=== PATIENT | female | born 1940 | race Caucasian/White ===

== ENCOUNTER 2018-10-06 14:22 | Emergency (ER) | payer MEDICARE, MEDICAID ==
[~2018-10-06] VITALS: Ht 160 cm; Wt 74.0 kg
[2018-10-06 15:06] LABS: BASOPHILS % (AUTO) 0.5 % (0-1); EOSINOPHILS % (AUTO) 0.6 % (0-6); HEMATOCRIT 43.2 % (35.0-45.0); HEMOGLOBIN 14.3 g/dl (12.0-16.0); LYMPHOCYTES # (AUTO) 1.8 X10'3 (1.1-4.8); LYMPHOCYTES % (AUTO) 24.5 % (21-51); MEAN CORPUSCULAR HEMOGLOBIN 29.4 PG (27.0-31.0); MEAN CORPUSCULAR HGB CONC 33.1 g/dL (33.0-36.5); MEAN CORPUSCULAR VOLUME 88.8 FL (78-98); MEAN PLATELET VOLUME 6.2 FL (7.4-10.4); MONOCYTES # (AUTO) 0.7 X10'3 (0-0.9); MONOCYTES % (AUTO) 9.1 % (2-12); NEUTROPHILS # (AUTO) 4.8 X10'3 (1.8-7.7); NEUTROPHILS % (AUTO) 65.3 % (42-75); PLATELET COUNT 219 X10'3 (140-440); RED BLOOD COUNT 4.87 X10'6 (4.20-5.60); RED CELL DISTRIBUTION WIDTH 13.9 % (11.5-14.5); WHITE BLOOD COUNT 7.4 X10'3 (4.5-11.0)
[2018-10-06 15:21] LABS: ALANINE AMINOTRANSFERASE 26 U/L (12-78); ALKALINE PHOSPHATASE 96 IU/L (46-116); ANION GAP 9 (8-16); ASPARTATE AMINO TRANSFERASE 20 U/L (10-37); BILIRUBIN,TOTAL 0.4 MG/DL (0.1-1.0); BLOOD UREA NITROGEN 15 MG/DL (7-18); BUN/CREATININE RATIO 16.5 (6.6-38.0); CALCIUM 9.3 MG/DL (8.5-10.1); CHLORIDE 101 MMOL/L (99-107); CREATININE 0.91 MG/DL (0.40-0.90); GLUCOSE 140 MG/DL (70-104); POTASSIUM 4.1 MMOL/L (3.5-5.1); SODIUM 137 MMOL/L (135-145); TOTAL CARBON DIOXIDE 27.2 MMOL/L (24-32); TOTAL PROTEIN 7.9 G/DL (6.4-8.2); eGFR 60 ML/MIN
--- NOTE | 2018-10-06 15:34 | NUR ---
dr. arana at bedside.
[2018-10-06 15:45] LABS: PARTIAL THROMBOPLASTIN TIME 26 SECONDS (22-32); PROTHROMBIN TIME 9.8 SECONDS (9.0-12.0)
[2018-10-06] MEDS ORDERED: APIX5TAB3 PO (16:02)
[2018-10-06 16:28] VITALS: BP 149/78
== END 2018-10-06 16:29 | disposition home or self-care (01) ==
LOC: ER 14:22
DX: I48.91 Unspecified atrial fibrillation (principal); I44.7 Left bundle-branch block, unspecified
CPT/HCPCS: 36415; 71045; 80053; 84484; 85025; 85610; 85730; 93005; 99284

== ENCOUNTER 2020-04-27 11:36 | Day surgery (SDC) | payer MEDICARE, MEDICAID ==
[~2020-04-27] VITALS: Ht 160 cm; Wt 65.9 kg
[~2020-04-27 11:36] MED LIST: ASPI-611 PO; HYDR-3965 PO; NAPR-996 PO; PANT40TA54 PO
[2020-04-27 11:50] VITALS: BP 142/77
[2020-04-27] MEDS ORDERED: MIDAZolam 5mg/5ml vial ONE (12:10)
[2020-04-27] MEDS ORDERED: fentaNYL/PF 50MCG/1 ML 2ML syringe ONE (12:10)
[2020-04-27] MEDS ORDERED: LIDOcaine Viscous 15ml cup ONE (12:11)
[2020-04-27] MEDS ORDERED: iohexol 300 MG/1 ML 50ml polymer ONE (12:11)
[2020-04-27] MEDS ORDERED: glucagon, human recombinant 1mg kit ONE (12:11)
[2020-04-27 13:49] VITALS: BP 124/80
[2020-04-27 13:58] VITALS: BP 148/61
[2020-04-27] MEDS ORDERED: levoFLOXACIN-Levaquin 500mg/D5 100 ML IV ONE (14:03)
[2020-04-27 14:08] VITALS: BP 143/82
[2020-04-27 14:28] VITALS: BP 153/82
[2020-04-27 14:38] VITALS: BP 133/71
== END 2020-04-27 15:00 | disposition home or self-care (01) ==
LOC: GI LAB 11:36
PROVIDERS: ATTEND Internal Medicine Gastroenterology
DX: Z46.59 Encounter for fitting and adjustment of other gastrointestinal appliance and device (principal); K80.50 Calculus of bile duct without cholangitis or cholecystitis without obstruction; I48.91 Unspecified atrial fibrillation; Z79.899 Other long term (current) drug therapy
CPT/HCPCS: 43264; 43275; 74330; 99153; C1769; C1773; G0500; J1610; J1956; J2250; J3010; J7040; Q9967; 43262; 99152; A4620

== ENCOUNTER 2020-08-19 10:48 | Emergency (ER) | payer MEDICARE, MEDICAID ==
[~2020-08-19] VITALS: Ht 160 cm; Wt 66.8 kg
[~2020-08-19 10:48] MED LIST changes: -HYDR-3965 PO; -NAPR-996 PO; -PANT40TA54 PO
[2020-08-19 11:06] VITALS: BP 156/64
[2020-08-19] MEDS ORDERED: LIDOcaine 1% W/epiNEPHrine 1:200,000 10ml vial IJ ONE (13:10)
[2020-08-19] MEDS ORDERED: DOXYCYCLINE 100MG CAPSULE PO STA (13:37)
[2020-08-19] MEDS ORDERED: DOXY100T56 PO (14:40)
== END 2020-08-19 14:46 | disposition home or self-care (01) ==
LOC: ER 10:49
DX: S00.05XA Superficial foreign body of scalp, initial encounter (principal); S00.01XA Abrasion of scalp, initial encounter; I48.91 Unspecified atrial fibrillation; Z79.899 Other long term (current) drug therapy; W57.XXXA Bitten or stung by nonvenomous insect and other nonvenomous arthropods, initial encounter; Y93.89 Activity, other specified; Y92.89 Other specified places as the place of occurrence of the external cause; Y99.8 Other external cause status
CPT/HCPCS: 10120; 99284; 99285

== ENCOUNTER 2022-06-07 10:07 | Emergency (ER) | payer MEDICARE, MEDICAID ==
[~2022-06-07] VITALS: Ht 160 cm; Wt 70.5 kg
[2022-06-07 10:34] VITALS: BP 160/69
[2022-06-07] MEDS ORDERED: CYCL-1 PO (11:50)
[2022-06-07] MEDS ORDERED: cyclobenzaprine 10mg tablet PO ONE (11:55)
[2022-06-07] MEDS ORDERED: HYDROcodone/acetaminophen 5mg/325mg tablet PO ONE (11:55)
== END 2022-06-07 12:16 | disposition home or self-care (01) ==
LOC: ER 10:07
DX: S39.012A Strain of muscle, fascia and tendon of lower back, initial encounter (principal); R25.2 Cramp and spasm; I48.91 Unspecified atrial fibrillation; Z79.82 Long term (current) use of aspirin; Z79.899 Other long term (current) drug therapy; X58.XXXA Exposure to other specified factors, initial encounter; Y93.89 Activity, other specified; Y92.89 Other specified places as the place of occurrence of the external cause; Y99.8 Other external cause status
CPT/HCPCS: 72100; 99283

== ENCOUNTER 2022-07-14 11:57 | Emergency (ER) | payer MEDICARE, MEDICAID ==
[~2022-07-14] VITALS: Ht 160 cm; Wt 70.5 kg
[~2022-07-14 11:57] MED LIST changes: +CYCL-1 PO
[2022-07-14 12:00] VITALS: BP 92/75
--- NOTE | 2022-07-14 13:18 | NUR ---
Transport home: Milana (friend) [phone]
[2022-07-14] MEDS ORDERED: acetaminophen 325mg tablet PO ONE (14:45)
[2022-07-14] MEDS ORDERED: ibuprofen tablet 400 MG TABLET PO ONE (14:45)
== END 2022-07-14 15:01 | disposition home or self-care (01) ==
LOC: ER 11:58
DX: S30.0XXA Contusion of lower back and pelvis, initial encounter (principal); S40.021A Contusion of right upper arm, initial encounter; I51.9 Heart disease, unspecified; Z79.82 Long term (current) use of aspirin; Z79.899 Other long term (current) drug therapy; W18.39XA Other fall on same level, initial encounter; Y93.89 Activity, other specified; Y92.89 Other specified places as the place of occurrence of the external cause; Y99.8 Other external cause status
CPT/HCPCS: 73502; 99284

== ENCOUNTER 2023-09-05 10:10 | Outpatient (CLI) | payer MEDICARE, MEDICAID ==
[~2023-09-05 10:10] MED LIST changes: +AMI200T PO; +APIX2.5T; -ASPI-611 PO; +ASPI81TA53 PO; +ATOR10TA PO; -CYCL-1 PO; +DOCU100C40 PO; +HYDR-3964 PO; +HYDR-3965 PO; +LOP25T PO; +MELO-100 PO; +OXYB5TAB21; +PREG50CA65 PO; +[UNRECOGNIZED DRUG - CODE]
== END 2023-09-05 23:59 | disposition home or self-care (01) ==
LOC: RAD 10:10
PROVIDERS: ATTEND Thoracic Surgery (Cardiothoracic Vascular Surgery)
DX: J90 Pleural effusion, not elsewhere classified (principal)
CPT/HCPCS: 71046

== ENCOUNTER 2023-09-22 18:10 | Emergency (ER) | payer MEDICARE, MEDICAID ==
[~2023-09-22] VITALS: Ht 160 cm; Wt 75.0 kg
[~2023-09-22 18:10] MED LIST changes: +ASPI81TA52 PO; -ASPI81TA53 PO; -ATOR10TA PO; +ATOR10TA70 PO; +FURO-150 PO; -HYDR-3964 PO; -LOP25T PO; -MELO-100 PO; +METO25TA6 PO; -OXYB5TAB21
[2023-09-22 18:16] VITALS: BP 134/49; PULSE 73; RESP 16; TEMP 97.8; O2SAT 99
[2023-09-22 19:01] LABS: BASOPHILS # (AUTO) 0.1 X10'3 (0-0.2); BASOPHILS % (AUTO) 0.7 % (0-1); EOSINOPHILS # (AUTO) 0.2 X10'3 (0-0.9); EOSINOPHILS % (AUTO) 2.4 % (0-6); HEMOGLOBIN 11.8 g/dl (12.0-16.0); LYMPHOCYTES # (AUTO) 1.6 X10'3 (1.1-4.8); LYMPHOCYTES % (AUTO) 21.2 % (21-51); MEAN CORPUSCULAR HEMOGLOBIN 30.4 PG (27.0-31.0); MEAN CORPUSCULAR HGB CONC 32.8 g/dL (33.0-36.5); MEAN CORPUSCULAR VOLUME 92.8 FL (78-98); MEAN PLATELET VOLUME 6.1 FL (7.4-10.4); MONOCYTES # (AUTO) 0.8 X10'3 (0-0.9); MONOCYTES % (AUTO) 11.2 % (2-12); NEUTROPHILS # (AUTO) 4.9 X10'3 (1.8-7.7); NEUTROPHILS % (AUTO) 64.5 % (42-75); PLATELET COUNT 255 X10'3 (140-440); RED BLOOD COUNT 3.88 X10'6 (4.20-5.60); RED CELL DISTRIBUTION WIDTH 15.9 % (11.5-14.5); WHITE BLOOD COUNT 7.5 X10'3 (4.5-11.0)
[2023-09-22 19:24] LABS: ALBUMIN 3.6 G/DL (3.4-5.0); ANION GAP 8 (8-16); BLOOD UREA NITROGEN 13 MG/DL (7-18); BUN/CREATININE RATIO 15.3 (10.0-20.0); CALCIUM 8.7 MG/DL (8.5-10.1); CHLORIDE 99 MMOL/L (99-107); CREATININE 0.85 MG/DL (0.40-0.90); GLUCOSE 138 MG/DL (70-104); POTASSIUM 3.7 MMOL/L (3.5-5.1); PRO BRAIN NATRIURETIC PEPTIDE 2791 PG/ML (0-450); SODIUM 136 MMOL/L (135-145); TOTAL CARBON DIOXIDE 29.1 MMOL/L (24-32); eCRCL 41 ML/MIN; eGFR 64 ML/MIN
== END 2023-09-22 21:13 | disposition home or self-care (01) ==
LOC: ER 18:10
DX: L76.32 Postprocedural hematoma of skin and subcutaneous tissue following other procedure (principal); Z79.899 Other long term (current) drug therapy
CPT/HCPCS: 36415; 71045; 80048; 83880; 84484; 85025; 93005; 93971; 99285

== ENCOUNTER 2024-06-23 08:51 | Emergency (ER) | payer MEDICARE, MEDICAID ==
[~2024-06-23] VITALS: Ht 160 cm; Wt 63.2 kg
[~2024-06-23 08:51] MED LIST changes: +LIDO700A47 TOP; +SENN-202 PO; +TIZA-189 PO
[2024-06-23 09:03] VITALS: BP 122/40; PULSE 56; O2SAT 99
[2024-06-23 10:15] VITALS: RESP 16
[2024-06-23] MEDS: HYDROcodone/acetaminophen 10/325mg tab PO ONE (10:15)
[2024-06-23] MEDS ORDERED: HYDR-3973 PO (10:53)
[2024-06-23] MEDS: dexamethasone sod phosphate 10mg/ml inj IM STA (11:13)
[2024-06-23 11:22] VITALS: TEMP 98.9
== END 2024-06-23 11:24 | disposition home or self-care (01) ==
LOC: ER 08:52
DX: G89.29 Other chronic pain (principal); M25.552 Pain in left hip; I48.91 Unspecified atrial fibrillation; I25.10 Atherosclerotic heart disease of native coronary artery without angina pectoris; Z95.1 Presence of aortocoronary bypass graft
CPT/HCPCS: 73502; 96372; 99284; J1100

== ENCOUNTER 2024-12-11 10:56 | Emergency (ER) | payer MEDICARE, MEDICAID ==
[~2024-12-11] VITALS: Ht 160 cm; Wt 64.0 kg
[2024-12-11 11:02] VITALS: BP 139/61; PULSE 95; TEMP 98; O2SAT 99
--- NOTE | 2024-12-11 12:29 | Physician Documentation ---
HPI ~ General Chief Complaint: Medication Request Stated Complaint: BACK PAIN Time Seen by MD: 11:54 Primary Medical Doctor: FARIDEH BONILLA [facility] History of Present Illness HPI Comments Patient is seen today With complaints of back pain and pain of her left hand. Patient states she has acute on chronic pain and has sustained multiple ground level falls and states she is normally ambulatory. Patient states she recently broke her left hand a little bit ago. Patient denies any current chest pain or shortness of breath or abdominal pain or nausea, vomiting, diarrhea. Medication Reconciliation Allergies: Coded Allergies: No Known Allergies (Unverified , 06/23/24) Scheduled Amiodarone Hcl (Cordarone), 200 MG PO BID, (Reported) Aspirin (Aspirin EC), 1 TAB PO DAILY, (Reported) Atorvastatin Calcium (Atorvastatin Calcium), 1 TAB PO DAILY, (Reported) Docusate Sodium (Docusate Sodium), 1 CAP PO DAILY, (Reported) Furosemide* (Lasix*), 1 TAB PO DAILY, (Reported) Lidocaine (Lidocaine), 1 PATCH TOP DAILY Metoprolol Tartrate (Metoprolol Tartrate), 1 TAB PO BID, (Reported) Pregabalin (Pregabalin), 1 CAP PO TID, (Reported) Sennosides/Docusate Sodium (Colace 2-in-1 Tablet), 1 TAB PO HS Tizanidine Hcl (Zanaflex), 1 TAB PO Q12H Scheduled PRN Hydrocodone Bit/Acetaminophen 5/325 MG ([place] 5/325 MG), 1 TAB PO Q6H PRN for pain, (Reported) Miscellaneous Medications Apixaban (Eliquis), (Reported) Methocarbamol (Methocarbamol), (Reported) Past Medical History Past Medical History: Atrial Fibrillation, Pancreatitis Past Surgical History: noncontributory Patient History: FH: colon cancer FATHER Smoking Status: Never smoker Alcohol Use: None Drug Use: none Lives with: Family Lives In: Home Occupation: retired Review of Systems Constitutional: Denies: chills, fever, weakness Eyes: Denies: pain, blurred vision ENT: Denies: ear pain, nose pain, throat pain, mouth pain Respiratory: Denies: cough, shortness of breath Cardiovascular: Denies: chest pain, palpitations Gastrointestinal: Denies: abdominal pain, nausea, vomiting Genitourinary: Denies: burning, dysuria Female Genitalia: Denies: vaginal discharge, pelvic pain Neurological: Denies: headache, dizziness Musculoskeletal: Denies: pain, swelling Integumentary: Denies: rash, lesions Allergic/Immunologic: Denies: hives, itching Hematologic/Lymphatic: Denies: no symptoms reported Psychiatric: Denies: depression, anxiety Physical Exam Physical Exam Vital Signs: Temperature: 98.0, Source: Temporal, Heart Rate: 95, Respiratory Rate: 16, BP: 139/61, Pulse Oximetry: 99, Weight: 64.000 Oxygen Flow Rate: 0 Physical Exam General: Awake and Alert, no acute distress. HEENT: Conjunctiva pink, Sclera clear, Mucus Membranes moist. Neck: Supple without masses and tenderness. Resp: Unlabored. Lungs clear to auscultation bilaterally. Heart: Regular Rate and rhythm, normal S1 and S2 without murmur, rub or gallop. Musculoskeletal: Patient on exam does have decreased range of motion of her hips and knees due to pain as well as a brace in place of her left hand. I do not appreciate any significant swelling of her left hand. Patient is neurovascularly intact distally. Motor function intact distally. Extremities: No cyanosis,clubbing or edema. Skin: Warm and Dry. Progress Results/Orders Results/Orders Vital Signs 12/11/24 11:02 Temp 98.0 Pulse 95 Resp 16 B/P (MAP) 139/61 Pulse Ox 99 O2 Flow Rate 0 Medical Decision Making Findings Patient is seen today With complaints of back pain and pain of her left hand. Patient states she has acute on chronic pain and has sustained multiple ground level falls and states she is normally ambulatory. Patient states she recently broke her left hand a little bit ago. Patient denies any current chest pain or shortness of breath or abdominal pain or nausea, vomiting, diarrhea. Patient was given a [place] 5/325 mg in the ED today by mouth. Prescription of [place] 5/325 mg sent to patient pharmacy to be used as directed. Patient will follow up with primary care as soon as possible for further eval and treatment of her acute on chronic pain. Patient will return to ED with any worsening, concerning or changing symptoms. Departure Disposition: HOME / SELF CARE / HOMELESS Impression: Primary Impression: Pain Additional Impression: Low back pain Qualified Codes: M54.50 - Low back pain, unspecified; G89.29 - Other chronic pain Condition: Improved Discharge Instructions: Medicine Refill at the Emergency Department Additional Instructions: Patient was given a [place] 5/325 mg in the ED today by mouth. Prescription of [place] 5/325 mg sent to patient pharmacy to be used as directed. Patient will follow up with primary care as soon as possible for further eval and treatment of her acute on chronic pain. Patient will return to ED with any worsening, concerning or changing symptoms. Referrals: NO PRIMARY CARE PROVIDER (PCP) Prescriptions Hydrocodone Bit/Acetaminophen 5/325 MG ([place] 5/325 MG) 5 Mg/325 Mg Tablet 1 TAB PO Q8H PRN for pain, #30 TAB Prov: XU BUSTILLOS 12/11/24 Signature Scribe Signature: No scribe Attestation: No scribe XU BUSTILLOS December 11, 2024 12:29
[2024-12-11] MEDS ORDERED: HYDR-3965 PO (12:32)
[2024-12-11 12:49] VITALS: RESP 18
[2024-12-11] MEDS: HYDROcodone/acetaminophen 5mg/325mg tablet PO STA (12:49)
== END 2024-12-11 12:55 | disposition home or self-care (01) ==
LOC: ER 10:57
DX: M54.50 Low back pain, unspecified (principal); M79.642 Pain in left hand
CPT/HCPCS: 99284

== ENCOUNTER 2024-12-24 11:09 | Emergency (ER) | payer MEDICARE, MEDICAID ==
[~2024-12-24] VITALS: Ht 160 cm; Wt 65.0 kg
[2024-12-24 11:16] VITALS: TEMP 97.6
--- NOTE | 2024-12-24 13:31 | Physician Documentation ---
History of Present Illness ~ Chief Complaint: Hip pain Stated Complaint: WEAKNESS Time Seen by MD: 12:27 Primary Medical Doctor: FARIDEH BOUDREAUX Mode of Arrival: EMS HPI 84-year-old female history of CAD status post CABG, AFib on Eliquis chronic back pain. She has had pain for several years. Worsened over the last several months. She was seen recently in the ED and prescribed Percocet which she stopped taking because she became constipated Medication Reconciliation Allergies: Coded Allergies: No Known Allergies (Unverified , 12/24/24) Scheduled Furosemide* (Lasix*), 1 TAB PO DAILY, (Reported) Metoprolol Tartrate (Metoprolol Tartrate), 1 TAB PO BID, (Reported) Scheduled PRN Hydrocodone Bit/Acetaminophen 5/325 MG ([place] 5/325 MG), 1 TAB PO Q6H PRN for pain, (Reported) Miscellaneous Medications Apixaban (Eliquis), (Reported) Discontinued Medications Amiodarone Hcl (Cordarone), 200 MG PO BID, (Reported) Discontinued Reason: patient no longer taking Aspirin (Aspirin EC), 1 TAB PO DAILY, (Reported) Discontinued Reason: patient no longer taking Atorvastatin Calcium (Atorvastatin Calcium), 1 TAB PO DAILY, (Reported) Discontinued Reason: patient no longer taking Docusate Sodium (Docusate Sodium), 1 CAP PO DAILY, (Reported) Discontinued Reason: patient no longer taking Hydrocodone Bit/Acetaminophen 5/325 MG ([place] 5/325 MG), 1 TAB PO Q8H PRN for pain Discontinued Reason: patient no longer taking Lidocaine (Lidocaine), 1 PATCH TOP DAILY Discontinued Reason: patient no longer taking Methocarbamol (Methocarbamol), (Reported) Discontinued Reason: patient no longer taking Pregabalin (Pregabalin), 1 CAP PO TID, (Reported) Discontinued Reason: patient no longer taking Sennosides/Docusate Sodium (Colace 2-in-1 Tablet), 1 TAB PO HS Discontinued Reason: patient no longer taking Tizanidine Hcl (Zanaflex), 1 TAB PO Q12H Discontinued Reason: patient no longer taking Past Medical History Past Medical History: Atrial Fibrillation, Pancreatitis Past Surgical History: noncontributory Patient History: FH: colon cancer FATHER Alcohol Use: None Drug Use: none Lives with: Family Lives In: Home Occupation: retired Review of Systems All Other Systems at this time: Reviewed and Negative Constitutional: Denies: fever Respiratory: Denies: shortness of breath Cardiovascular: Denies: chest pain Gastrointestinal: Denies: abdominal pain Physical Exam Vital Signs: RN Vital Signs have been reviewed: Yes, Temperature: 97.6, Source: Temporal, Heart Rate: 72, Respiratory Rate: 18, BP: 146/54, Pulse Oximetry: 98, Weight: 65.000 Physical Exam Well-appearing no distress resting comfortably in bed No JVD Moist mucous membranes Pulmonary clear to auscultation bilaterally Cardiac no murmur Abdomen is soft nontender Lower extremity 1+ pitting bilateral edema, spastic lower extremity feet held and dorsiflexion bilaterally Awake alert oriented Progress Progress Note Discussed case with Dr. Harris who will evaluate the patient 10:30 a.m. discussed case with Dr. Harris who reviewed the imaging and felt this is chronic. He recommends admission to the hospitalist service for PT, pain management. He may consider transfer to [facility] on Monday for operative intervention 11:55 a.m. discussed case with Dr. Thurman who was concerned that with no on-call neurosurgical specialist if patient were to deteriorate he would not be able to intervene. He has declining admission and requesting that we transfer patient to a facility with on-call neurosurgical evaluation. We will begin bed search Results/Orders Reviewed/noted all lab results: Yes Results/Orders Orders - CAITIE BLOOD MD Ct Abdomen Pelvis (12/24/24 17:00) * (A) [facility]- Protocol * Q12H@07,19 (12/24/24 17:47) Page Hospitalist (12/24/24 18:04) Fill Out Med Reconciliation (12/24/24 18:04) Mri Thoracic Spine (12/25/24 07:00) Page Hospitalist (12/25/24 11:02) Fill Out Med Reconciliation (12/25/24 11:02) Pt Eval & Treat (12/25/24 11:05) Ultrasound Pelvis W/Orwo Dplx (12/25/24 11:08) Completed Orders - CAITIE BLOOD MD Cbc/Diff (12/24/24 15:15) CMP (12/24/24 15:15) Lipase (12/24/24 15:15) Baclofen Tablet (Lioresal Tablet) (12/24/24 15:15) MG (12/24/24 15:15) Acetaminophen 325mg Tablet (Tylenol Tabl (12/24/24 15:15) CK (12/24/24 15:15) Ketorolac Trometh 15mg/Ml Vial (Toradol (12/24/24 15:25) Normal Saline 500ml Iv Soln (Sodium Chlo (12/24/24 16:20) Lorazepam Inj (Ativan Inj) (12/24/24 16:20) Ct Abdomen Pelvis (12/24/24 17:00) Iohexol 300mg/Ml 100ml Inj. (Omnipaque-3 (12/24/24 16:52) Lidocaine 2% Jelly 11ml Syr (Glydo-Lidoc (12/24/24 17:50) Ua W/Microscopic, Cult If Ind (12/24/24 18:56) Mri Thoracic Spine (12/25/24 07:00) Morphine 4mg/Ml Inj. (Morphine Inj.) (12/25/24 08:40) BMP (12/25/24 11:07) Cbc/Diff (12/25/24 11:07) Ultrasound Pelvis W/Orwo Dplx (12/25/24 11:08) Vital Signs 12/24/24 12/24/24 12/24/24 12/24/24 11:16 13:26 15:15 16:16 Temp 97.6 Pulse 97 72 78 76 Resp 18 18 18 18 B/P (MAP) 150/57 146/54 (84) 180/70 (106) 178/88 (118) Pulse Ox 99 98 97 99 12/24/24 12/24/24 12/24/24 12/24/24 17:46 18:30 19:00 20:15 Pulse 75 78 80 Resp 16 21 22 18 B/P (MAP) 197/83 (121) 185/73 (110) 177/78 (111) Pulse Ox 99 99 96 12/24/24 12/24/24 12/24/24 12/24/24 20:42 21:54 21:54 22:42 Pulse 65 Resp 17 16 16 12 B/P (MAP) 152/64 (93) Pulse Ox 97 12/25/24 12/25/24 12/25/24 12/25/24 00:58 04:35 07:05 08:53 Pulse 65 71 79 Resp 13 16 16 14 B/P (MAP) 145/63 (90) 165/69 (101) 170/55 (93) Pulse Ox 99 98 98 O2 Flow Rate 0 0 12/25/24 12/25/24 12/25/24 12/25/24 08:55 09:08 10:05 10:36 Pulse 89 68 68 Resp 15 14 14 14 B/P (MAP) 186/97 (126) 165/79 (107) 149/72 (97) Pulse Ox 98 96 99 O2 Flow Rate 0 0 12/25/24 12/25/24 14:12 18:15 Pulse 82 98 Resp 18 15 B/P (MAP) 146/65 (92) 144/68 (93) Pulse Ox 97 95 O2 Flow Rate 0 Laboratory Tests Test 12/24/24 15:36 12/24/24 18:56 12/25/24 11:20 White Blood Count 5.5 7.8 Red Blood Count 3.93 L 4.10 L Hemoglobin 11.9 L 12.5 Hematocrit 35.2 36.6 Mean Corpuscular Volume 89.6 89.3 Mean Corpuscular Hemoglobin 30.2 30.5 Mean Corpuscular Hemoglobin Concent 33.7 34.2 Red Cell Distribution Width 14.6 H 14.6 H Platelet Count 144 139 L Mean Platelet Volume 5.8 L 5.7 L Neutrophils (%) (Auto) 66.0 84.8 H Lymphocytes (%) (Auto) 22.0 6.8 L Monocytes (%) (Auto) 11.0 7.9 Eosinophils (%) (Auto) 0.4 0.2 Basophils (%) (Auto) 0.6 0.3 Neutrophils # (Auto) 3.6 6.6 Lymphocytes # (Auto) 1.2 0.5 L Monocytes # (Auto) 0.6 0.6 Eosinophils # (Auto) 0.0 0.0 Basophils # (Auto) 0.0 0.0 CBC Comment Sodium Level 123 L 128 L Potassium Level 4.5 4.8 Chloride Level 89 L 94 L Carbon Dioxide Level 26.4 27.0 Anion Gap 8 7 L Blood Urea Nitrogen 8 5 L Creatinine 0.73 0.64 Estimated GFR/1.73 m2 76 88 BUN/Creatinine Ratio 11.0 7.8 L Glucose Level 91 90 Calcium Level 8.9 8.8 Magnesium Level 2.0 Total Bilirubin 1.2 H Aspartate Amino Transf (AST/SGOT) 26 Alanine Aminotransferase (ALT/SGPT) 17 Alkaline Phosphatase 109 Total Creatine Kinase 104 Total Protein 6.8 Albumin 3.5 3.4 Globulin 3.3 Albumin/Globulin Ratio 1.1 Lipase 23 Chemistry Comments Urine Specimen Description Non-specified Urine Color Yellow Urine Clarity Clear Urine pH 7.5 Urine Specific [place] 1.010 Urine Protein Negative Urine Glucose (UA) Negative Urine Ketones 15 H Urine Occult Blood Trace-intact Urine Nitrite Negative Urine Bilirubin Negative Urine Urobilinogen 0.2 Urine Leukocyte Esterase Negative Urine RBC 0-2 Urine WBC None seen Urine Squamous Epithelial Cells None seen Urine Bacteria None seen Urine Culture Indicated Not ind Volume Urine Centrifuged 10 ml Urine Comment EKG/XRAY/CT/US/VASC/MRI CT : Impression CT abdomen independently interpreted by myself shows no free air Medical Decision Making Additional info obtained from: old records Findings Reviewed discharge summary August 2023 CAD status post CABG, AFib on Eliquis Additional Comment Spinal cord injury, bowel obstruction, Departure Disposition: ADMITTED INPATIENT Admitted to Inpatient Unit: to hospitalist Impression: Primary Impression: Hyponatremia Additional Impressions: Pelvic mass Low back pain Qualified Codes: M54.50 - Low back pain, unspecified Compression fracture Urinary retention Additional Impression Text 84-year-old presenting with acute on chronic back pain urinary retention constipation and abdominal pain. Found today to have moderate to severe hyponatremia. CT abdomen and pelvis pending. Signed out to night physician to follow up CT scan results. We will need admission for hyponatremia pain control and likely MRI lumbar spine Britney Pepe MD: Assumed care of patient from Dr. Blood. Patient with disruptive lesions at T11 and T12. Likely the cause of her pain. She does have a possible gynecologic mass in the pelvis. Did attempt to get a hold of Neurosurgery with no response. Patient has remained stable and has been given pain control. Will get an MRI this morning and re-attempt consultation with Neurosurgery. Handing care over to Dr. Blood. Referrals: NO PRIMARY CARE PROVIDER (PCP) Signature Scribe Signature: na Attestation: CAITIE Fischer MD Dec 24, 2024 13:31 BRITNEY PEPE MD Dec 24, 2024 18:58
[2024-12-24 15:46] LABS: BASOPHILS % (AUTO) 0.6 % (0-1); EOSINOPHILS % (AUTO) 0.4 % (0-6); HEMATOCRIT 35.2 % (35.0-45.0); HEMOGLOBIN 11.9 g/dl (12.0-16.0); LYMPHOCYTES # (AUTO) 1.2 X10'3 (1.1-4.8); MEAN CORPUSCULAR HEMOGLOBIN 30.2 PG (27.0-31.0); MEAN CORPUSCULAR HGB CONC 33.7 g/dL (33.0-36.5); MEAN CORPUSCULAR VOLUME 89.6 FL (78-98); MEAN PLATELET VOLUME 5.8 FL (7.4-10.4); MONOCYTES # (AUTO) 0.6 X10'3 (0-0.9); NEUTROPHILS # (AUTO) 3.6 X10'3 (1.8-7.7); PLATELET COUNT 144 X10'3 (140-440); RED BLOOD COUNT 3.93 X10'6 (4.20-5.60); RED CELL DISTRIBUTION WIDTH 14.6 % (11.5-14.5); WHITE BLOOD COUNT 5.5 X10'3 (4.5-11.0)
[2024-12-24] MEDS: acetaminophen 325mg tablet PO ONE (15:59)
[2024-12-24] MEDS: baclofen 10mg tablet PO ONE (15:59)
[2024-12-24] MEDS: ketorolac trometh 15mg/ml vial 15 MG/ML ML IV ONE (15:59)
[2024-12-24 16:10] LABS: ALANINE AMINOTRANSFERASE 17 U/L (12-78); ALBUMIN 3.5 G/DL (3.4-5.0); ALBUMIN/GLOBULIN RATIO 1.1 (1.1-1.5); ALKALINE PHOSPHATASE 109 IU/L (46-116); ANION GAP 8 (8-16); ASPARTATE AMINO TRANSFERASE 26 U/L (10-37); BILIRUBIN,TOTAL 1.2 MG/DL (0.1-1.0); BLOOD UREA NITROGEN 8 MG/DL (7-18); CALCIUM 8.9 MG/DL (8.5-10.1); CHLORIDE 89 MMOL/L (99-107); CREATINE KINASE 104 U/L (26-192); CREATININE 0.73 MG/DL (0.40-0.90); GLUCOSE 91 MG/DL (70-104); LIPASE 23 U/L (16-77); POTASSIUM 4.5 MMOL/L (3.5-5.1); SODIUM 123 MMOL/L (135-145); TOTAL CARBON DIOXIDE 26.4 MMOL/L (24-32); TOTAL PROTEIN 6.8 G/DL (6.4-8.2); eCRCL 47 ML/MIN; eGFR 76 ML/MIN
[2024-12-24] MEDS ORDERED: iohexol 300mg/ml 100ml inj. ONE (16:52)
[2024-12-24] MEDS: LORazepam 2 mg/ml vial IV ONE (16:58)
[2024-12-24] MEDS: normal saline 500ml IV soln 500 ML IV SCH (16:58)
[2024-12-24] MEDS: LidoCAINE 2% Topical Jelly 11mL syringe (UROJET) TOP ONE (17:50)
--- NOTE | 2024-12-24 18:17 | RADIOLOGY REPORT ---
Indication: abdominal pain Technique: CT axial images of the abdomen and pelvis are obtained with intravenous contrast. Coronal and sagittal reformats were obtained. Radiation Dose Information: CTDI volume is 13.8 mGy. Dose-length product is 745 mGy*cm Comparison: CT ABDOMEN PELVIS on DOS: 01/29/20, CT ABDOMEN PELVIS on DOS: 01/20/20 FINDINGS: Lung bases demonstrate bibasilar atelectasis. Cardiomegaly. Adrenal glands, spleen and pancreas unremarkable. No enhancing hepatic lesion. No CT evidence for cho lelithiasis. There is mild right hydroureteronephrosis. Left kidney demonstrates no hydronephrosis. Small hiatal hernia. Small bowel loops normal in caliber. Colonic diverticular disease. Large bowel loops are relatively nondistended. Normal appendix. Abdominal aortic atherosclerotic disease. Markedly distended bladder. Posterior right pelvic enhancin g lesion measuring 4.2 x 3.6 cm. No inguinal lymphadenopathy. Gcgu-[id number] bilateral sacroiliac degenerative joint disease. Severe destructive changes of the T12 vertebralm body with 90% loss height 9 mm retropulsion resultin g in compression upon the thecal sac/ spinal canal stenosis that appears to be severe in nature. Ther e are also erosive/destructive changes of the T11 inferior endplate, L1 superior endplate. Severe wed ging deformity of the T12 vertebral body. Dexp-md-rcpiijod degenerate changes bilateral hips. IMPRESSION: 1. Severe destructive changes of the T12 vertebral body with 90% loss height, 9 mm retropulsion as we ll as adjacent erosive and destructive changes of the T11 inferior endplate, T12 superior endplate. C orrelate with prior trauma/ infection history. Differential considerations include sequela of discit is osteomyelitis, previous infection, trauma. Neurosurgical consultation advised given the degree of retropulsion of the T12 vertebral body and compression of the thecal sac resulting in apparent sever e spinal canal stenosis. MRI thoracic spine with and without contrast also recommended to further ch aracterize. 2. Marked bladder distention. 3. Mild right Hydroureteronephrosis which can be secondary to underlying bladder distention. 4. Right pelvic circumferential enhancing lesion measuring 4.2 cm. Differential considerations includ e uterine leiomyoma, cocktail server neoplasm. Recommend pelvic ultrasound to characterize. 5. Atherosclerotic disease. 6. Other findings as described.
[2024-12-24 19:11] LABS: BILIRUBIN,URINE NEGATIVE (Neg); CLARITY,URINE CLEAR (Clear); COLOR,URINE YELLOW (Yellow); GLUCOSE, URINE NEGATIVE (Neg); KETONES,URINE 15 mg/dl (Neg); LEUKOCYTE ESTERASE ,URINE NEGATIVE (Neg); NITRITES, URINE NEGATIVE (Neg); OCCULT BLOOD,URINE TRACE-INTACT (Neg); PH,URINE 7.5 (4.8-8.0); PROTEIN,URINE NEGATIVE (Neg); UROBILINOGEN,URINE 0.2 E.U/dL (0.2-1.0)
[2024-12-24 19:17] LABS: UA COLLECTION TYPE NON-SPECIFIED
[2024-12-24 19:18] LABS: BACTERIA,URINE NONE SEEN /HPF (Neg); RBC,URINE 0-2 /HPF (0-2); SQUAMOUS EPITHELIAL CELL,UR NONE SEEN /LPF (FEW); WBC,URINE NONE SEEN /HPF (0-4)
[2024-12-24] MEDS: ondansetron/PF 4mg/2ml inj IV ONE (20:41)
[2024-12-24] MEDS: morphine 4 MG/ML inj SYRINge IV ONE (20:42)
[2024-12-25] MEDS: morphine 4 MG/ML inj SYRINge IV ONE (08:53)
--- NOTE | 2024-12-25 09:13 | RADIOLOGY REPORT ---
EXAM: MR MRI THORACIC SPINE HISTORY: back pain COMPARISON: CT scan of the abdomen and pelvis dated 12/24/2024. TECHNIQUE: Multiplanar multisequence noncontrast MR images of the thoracic spine were performed. FINDINGS: There is near-complete collapse of the T12 vertebral body, with edema of T11, T12, and L1 vertebral b odies. There is retropulsion fragments of the T12 vertebral body measuring 12 mm AP, narrowing the A P dimension of the spinal canal to 5.5 mm at that level (image 7, series 11), and causing mass effect on the distal spinal cord. There is mild edema of the distal spinal cord. The conus terminates at L1 . The T1-T3 vertebral levels are not well evaluated here, as the [id number] was focused on the lower thoracic spine. No fractures or significant spinal canal stenosis are identified at the T5-T11 leve ls. IMPRESSION: 1. There complete collapse of the T12 vertebral body with 12 mm retropulsion of fragments causing mod erate spinal canal stenosis and mass effect on the distal spinal cord that level. There is associated edema of the distal spinal cord. There is edema of the T11, T12, and L1 vertebral bodies. This proce ss is likely due to pathologic fracture, likely due to discitis and osteomyelitis, less likely malign christina. Recommend spinal surgery consultation if not already obtained. 2. No significant spinal canal stenosis T4 through T11 levels. The T1-T3 levels are not evaluated he re.
[2024-12-25 11:37] LABS: BASOPHILS % (AUTO) 0.3 % (0-1); EOSINOPHILS % (AUTO) 0.2 % (0-6); HEMATOCRIT 36.6 % (35.0-45.0); HEMOGLOBIN 12.5 g/dl (12.0-16.0); LYMPHOCYTES # (AUTO) 0.5 X10'3 (1.1-4.8); LYMPHOCYTES % (AUTO) 6.8 % (21-51); MEAN CORPUSCULAR HEMOGLOBIN 30.5 PG (27.0-31.0); MEAN CORPUSCULAR HGB CONC 34.2 g/dL (33.0-36.5); MEAN CORPUSCULAR VOLUME 89.3 FL (78-98); MEAN PLATELET VOLUME 5.7 FL (7.4-10.4); MONOCYTES # (AUTO) 0.6 X10'3 (0-0.9); MONOCYTES % (AUTO) 7.9 % (2-12); NEUTROPHILS # (AUTO) 6.6 X10'3 (1.8-7.7); NEUTROPHILS % (AUTO) 84.8 % (42-75); PLATELET COUNT 139 X10'3 (140-440); RED CELL DISTRIBUTION WIDTH 14.6 % (11.5-14.5); WHITE BLOOD COUNT 7.8 X10'3 (4.5-11.0)
[2024-12-25 11:44] LABS: ALBUMIN 3.4 G/DL (3.4-5.0); ANION GAP 7 (8-16); BLOOD UREA NITROGEN 5 MG/DL (7-18); BUN/CREATININE RATIO 7.8 (10.0-20.0); CALCIUM 8.8 MG/DL (8.5-10.1); CHLORIDE 94 MMOL/L (99-107); CREATININE 0.64 MG/DL (0.40-0.90); GLUCOSE 90 MG/DL (70-104); POTASSIUM 4.8 MMOL/L (3.5-5.1); SODIUM 128 MMOL/L (135-145); eCRCL 54 ML/MIN; eGFR 88 ML/MIN
--- NOTE | 2024-12-25 13:06 | RADIOLOGY REPORT ---
Technique: Real-time ultrasound images through the pelvis using a transabdominal transducer. For bett er evaluation of the ovaries and endometrial stripe, an endovaginal transducer was used. Indication: pelvic mass Comparison: 12/24/2024 Findings: The uterus is heterogeneous in appearance with prominent calcifications which on previous CT represen t vascular calcifications. Uterus measures 7.2 cm. Posterior to the uterus in the right adnexal regio n, there is a hypoechoic lesion measuring 3.9 by 3.3 cm corresponding to the lesion seen on prior CT. This is hypoechoic in appearance with some through transmission. Left ovary nonvisualized. Distended bladder with antonio catheter, measuring 416 cc in volume. No focal bladder wall thickening s een on the provided images. Impression: 1. 3.9 cm right adnexal region hypoechoic lesion posterior to the uterus, likely corresponding to the lesion seen on the previous CT scan. This could represent the right ovary or a complex right adnexa l lesion/ mass. Recommend MRI pelvis with and without contrast to evaluate in order to exclude an en hancing mass/neoplasm. 2. Left ovary nonvisualized. 3. Uterine vascular calcifications.
[2024-12-25] MEDS: morphine 4 MG/ML inj SYRINge IV PRN (20:42)
[2024-12-25] MEDS: LidoCAINE 2% Topical Jelly 11mL syringe (UROJET) TOP ONE (22:32)
[2024-12-26 01:00] VITALS: BP 148/87; PULSE 99; RESP 15; O2SAT 100
== END 2024-12-26 03:12 | disposition hospice, inpatient (51) ==
LOC: ER 11:10
DX: E87.1 Hypo-osmolality and hyponatremia (principal); R33.9 Retention of urine, unspecified; R19.00 Intra-abdominal and pelvic swelling, mass and lump, unspecified site; M54.50 Low back pain, unspecified; I25.10 Atherosclerotic heart disease of native coronary artery without angina pectoris; I48.91 Unspecified atrial fibrillation; M48.54XA Collapsed vertebra, not elsewhere classified, thoracic region, initial encounter for fracture
CPT/HCPCS: 36415; 51702; 74177; 80048; 80053; 81001; 82550; 83690; 83735; 85025; 96374; 96375; 96376; 99285; A6213; C1758; J1885; J2060; J2270; J2405; J7040; Q9967